=== PATIENT | female | born 1995 | race Caucasian/White ===

== ENCOUNTER 2017-05-24 14:28 | Emergency (ER) | payer BC | END 2017-05-25 00:45 | disposition left against medical advice (07) | LOC: FTE 05-25 00:45 | DX: N64.4 Mastodynia (principal) | CPT/HCPCS: 99282; Z7502 ==

== ENCOUNTER 2017-06-26 15:58 | Emergency (ER) | payer BC ==
[2017-06-26 18:05] LABS: URINE BLOOD (Dip) POC Trace-intact (NEGATIVE); URINE GLUCOSE (Dip) POC Negative (NEGATIVE); URINE KETONES (Dip) POC Negative (NEGATIVE); URINE LEUKOCYTE EST (Dip) POC Negative (NEGATIVE); URINE NITRITE (Dip) POC Negative (NEGATIVE); URINE TOTAL PROTEIN POC Negative (NEGATIVE)
== END 2017-06-26 20:52 | disposition home or self-care (01) ==
LOC: FTE 15:58
DX: N63.10 Unspecified lump in the right breast, unspecified quadrant (principal)
CPT/HCPCS: 76642; 81003; 81025; 99284-25